=== PATIENT | female | born 1955 | race Caucasian/White ===

== ENCOUNTER 2017-01-15 10:09 | Emergency (ER) | payer OTHER ==
[~2017-01-15] VITALS: Ht 167.6 cm; Wt 63.5 kg
--- NOTE | ~2017-01-15 | EKG ---
[address] [address] ELECTROCARDIOGRAM REPORT Name: DARIUS WILLIS [id number] Admission: 01/15/17 Attend Phys: Discharge: Date of : 59 Report #: [id number] THIS REPORT FOR: //name// [facility] ED Test Date: 2017-01-15 Test Time: 10:23:30 Pat Name: DARIUS WILLIS Department: Room: Gender: F Director Of First Impressions: [place] MEDINA : 1955 Requested By: Ric Mcdonald Order Number: [id number] MD: Jt Pa Measurements Intervals [place] Rate: 47 P: 73 ME: 156 QRS: 63 QRSD: 101 T: 52 QT: 468 QTc: 414 Interpretive Statements Slow sinus arrhythmia No previous ECG available for comparison Electronically Signed On 01-15-2017 11:13:11 CDT by Jt Pa [email or web address] <ELECTRONICALLY SIGNED> By: Jt Pa MD 01/15/17 1113 1023 1023 Jt Pa MD /EPI
[~2017-01-15 10:09] MED LIST: AZITHROMYCIN 2250 MG PO; FLAGYL500 MG PO; HYDROCODONE-AP1 EAC6 PO; LAMICTAL100 MG PO
[2017-01-15 10:27] LABS: ABSOLUTE NEUTROPHILS 2.2 thou/uL (1.4-8.2); BASOPHILS 0.8 % (0.0-2.0); EOSINOPHILS 2.7 % (0.0-3.0); HEMATOCRIT 41.2 % (37.0-47.0); HEMOGLOBIN 14.3 gm/dL (12.0-15.0); LYMPHOCYTES 28.3 % (24.0-44.0); MCH 32.2 pg (26.0-34.0); MCHC 34.6 g/dL (28.0-37.0); MONOCYTES 6.1 % (1.0-8.0); PLATELET COUNT 118 thou/uL (150-400); POLYS 62.1 % (36.0-66.0); RBC 4.43 mil/uL (4.20-5.00); RDW 13.8 % (10.5-14.5); WBC 3.5 thou/uL (4.0-11.0)
[2017-01-15 10:29] LABS: MANUAL DIFF NO
[2017-01-15 10:36] LABS: ANION GAP 8 mmol/L (7-16); BUN 19 mg/dL (7-18); CALCIUM 8.2 mg/dL (8.5-10.1); CHLORIDE 105 mmol/L (98-107); CO2 26 mmol/L (21-32); CREATININE 0.7 mg/dL (0.6-1.0); GLUCOSE 103 mg/dL (74-106); POTASSIUM 4.5 mmol/L (3.5-5.1); SODIUM 139 mmol/L (136-145)
[2017-01-15 10:43] LABS: ALBUMIN 3.4 g/dL (3.4-5.0); ALKALINE PHOSPHATASE 90 U/L (46-116); SGOT 28 U/L (15-37); SGPT 26 U/L (30-65); TOTAL BILIRUBIN 0.7 mg/dL (<0.1-1.0); TOTAL PROTEIN 6.9 g/dL (6.4-8.2); TROPONIN-I < 0.04 ng/mL (<0.04-0.07)
[2017-01-15] MEDS ORDERED: ANTIVERT25 MG PO (11:18)
[2017-01-15] MEDS ORDERED: VALIUM5 MG PO (11:20)
== END 2017-01-15 11:46 | disposition home or self-care (01) ==
LOC: ER 10:09
PROVIDERS: Physician Assistant
DX: R42 Dizziness and giddiness (principal); Z98.890 Other specified postprocedural states; F10.99 Alcohol use, unspecified with unspecified alcohol-induced disorder